=== PATIENT | male | born 1950 | race Caucasian/White ===

== ENCOUNTER 2018-02-12 14:18 | Observation (INO) | payer MEDICARE ==
[~2018-02-12] VITALS: Ht 182.9 cm; Wt 83.1 kg
--- OUTSIDE RECORDS SUMMARY | 2018-02-12 14:25 | XMS REPORT | Clinical Summary ---
Author Author User, GARRET Organization [facility] [place] Address Unknown Phone Unavailable Allergies, Adverse Reactions, Alerts Allergy Name Reaction Description Start Date Severity Status Provider No Known Allergies Rocco Porras Conditions or Problems Problem Name Problem Code Onset Date Status Entry Date Provider Comment Standard Description Annotate DIABETES MELLITUS, NONINSULIN DEPENDENT (NIDDM) 250.00 Active Rosey Alba Diabetes mellitus without mention of complication, type II or unspecified type, not stated as uncontrolled HYPERTENSION 401.1 Active Rosey Alba Benign essential hypertension HYPERCHOLESTEROLEMIA 272.0 Active Rosey Alba Pure hypercholesterolemia POLYCYTHEMIA 289.0 Active Rosey Alba Polycythemia, secondary GERD 530.81 Active Rosey Alba Esophageal reflux HYPOGLYCEMIA 251.2 Active Rosey Alba Hypoglycemia, unspecified ANEMIA NOS 285.9 Active Rosey Alba Anemia, unspecified BENIGN PROSTATIC HYPERTROPHY 600.0 Active Rosey Alba Hypertrophy (benign) of prostate MICROALBUMINURIA 791.0 Active Rosey Alba Proteinuria HEALTH SCREENING V70.0 Resolved Rosey Alba Routine general medical examination at a health care facility RENAL INSUFFICIENCY 593.9 Active Rosey Alba Unspecified disorder of kidney and ureter HEALTH SCREENING V70.0 Active Rosey Alba Routine general medical examination at a health care facility Medication List Medication Instructions Start Date Stop Date Generic Name NDC Status Provider Patient Instruction ASPIRIN 81 MG TAB 1 PO twice per week ASPIRIN 54417645126 No Longer Active Rosey Alba GLIPIZIDE 5 MG TABS 1/2 po BID GLIPIZIDE 98510280027 Active Rosey Alba PRILOSEC 20 MG CPDR 1 po daily OMEPRAZOLE 52006302511 No Longer Active Rosey Alba PLENDIL 5 MG TAB CR 1 PO daily FELODIPINE No Longer Active Rosey Alba ZETIA 10 MG TABS Take 1 PO daily EZETIMIBE 13671276037 No Longer Active Rosey Alba LISINOPRIL-HYDROCHLOROTHIAZIDE 20-25 MG TABS 1 PO Daily LISINOPRIL-HYDROCHLOROTHIAZIDE 24587907849 Active Rosey Alba ZOCOR 40 MG TABS 1 PO Daily SIMVASTATIN 42527700337 Active Rosey Alba METFORMIN HCL 1000 MG TABS 1 po BID METFORMIN HCL 75708974956 Active Rosey Alba Vital Signs Date Name Value Unit Range Description blood pressure, diastolic - 8462-4 78 mm[Hg] BP chow blood pressure, systolic - 8480-6 142 mm[Hg] BP sys pulse rate E&M - 8867-4 70 /min Heart rate respiratory rate E&M - 9279-1 14 /min Resp rate temperature E&M 98.9 [degF] Body temperature weight E&M - 3141-9 195 [lb_av] Weight Measured blood pressure, diastolic - 8462-4 75 mm[Hg] BP chow blood pressure, systolic - 8480-6 145 mm[Hg] BP sys pulse rate E&M - 8867-4 60 /min Heart rate respiratory rate E&M - 9279-1 14 /min Resp rate weight E&M - 3141-9 190 [lb_av] Weight Measured Diagnostic Results Date Name Value Unit Range Description Clinical Lists Update: CMP, CBC, Lipid, HbA1c, Micro, Ferritin - Chemistry calcium, serum 8.9 mg/dL creatinine, serum 1.58 mg/dL ferritin, serum 297.4 ng/mL alanine aminotransferase (SGPT), serum 51 U/L HDL cholesterol, serum 60 mg/dL lipoprotein, beta, serum, point, quantitative, calculated 93 mg/ dL hemoglobin A1C, blood, as % of total hemoglobin 7.1 % bilirubin, serum, total 0.5 mg/dL Estimated Glomerular Filtration Rate (calc) 45 mL/min/1.73m2 albumin, serum 4.0 g/dL triglyceride, serum, fasting 77 mg/dL alkaline phosphatase, serum 87 U/L potassium, serum 5.7 mmol/L urea nitrogen, blood 33 mg/dL glucose, plasma fasting 148 mg/dL protein, total, serum 7.3 g/dL chloride, serum 105 mmol/L sodium, serum 139 mmol/L cholesterol, serum 168 mg/dL aspartate aminotransferase (SGOT), serum 29 U/L carbon dioxide, venous blood 25 mmol/L Clinical Lists Update: CMP, CBC, Lipid, HbA1c, Micro, Ferritin - Hematology red blood cell distribution width 12.1 % mean corpuscular volume, RBC 95.8 fL leukocyte count, blood 6.2 10*3/mm3 erythrocyte (RBC) count 4.09 10*6/mm3 platelet count 206 10*3/mm3 hemoglobin, blood 13.3 g/dL hematocrit, blood 39.2 % Clinical Lists Update: CMP, CBC, Lipid, HbA1c, Micro, Ferritin - Urinalysis microalbumin, urine, semiquantitative 7.1 mg/dL Clinical Lists Update: CMP,FLP,TSH,HgA1c - Chemistry albumin, serum 3.7 g/dL alkaline phosphatase, serum 121 U/L urea nitrogen, blood 13 mg/dL calcium, serum 9.2 mg/dL chloride, serum 102 mmol/L cholesterol, serum 217 mg/dL carbon dioxide, venous blood 25 mmol/L creatinine, serum 1.05 mg/dL HDL cholesterol, serum 53 mg/dL hemoglobin A1C, blood, as % of total hemoglobin 7.0 % thyroid stimulating hormone, serum 1.29 u[iU]/mL LDL cholesterol, serum 135 mg/dL potassium, serum 4.9 mmol/L protein, total, serum 7.6 g/dL aspartate aminotransferase (SGOT), serum 23 U/L alanine aminotransferase (SGPT), serum 48 U/L bilirubin, serum, total 0.4 mg/dL triglyceride, serum, fasting 147 mg/dL sodium, serum 137 mmol/L anion gap, serum 10 glucose, plasma fasting 241 mg/dL Estimated Glomerular Filtration Rate (calc) >60 mL/min/1.73m2 Encounters Code Encounter Date Provider Facility CPT-25988 Ofc Vst, Est Level III 16:38:31 CDT [facility]y [facility] CPT-61333 Ofc Vst, Est Level III 15:48:56 MEDICAL INSTRUMENT CABLE FABRICATOR Rosey Alba DO, FACP CPT-01895 Ofc Vst, Est Level IV 11:16:22 CDT oRsey Alba DO, FACP CPT-02511 Ofc Vst, Est Level IV 10:50:20 MEDICAL INSTRUMENT CABLE FABRICATOR Rosey Lawrence Alba, DO, FACP CPT-13971 Ofc Vst, Est Level IV 09:58:34 MEDICAL INSTRUMENT CABLE FABRICATOR Rosey Lawrence Alba, DO, FACP CPT-80842 Ofc Vst, Est Level IV 13:54:47 CDT Rosey Lawrence Anjali, DO, FACP CPT-47856 Ofc Vst, Est Level IV 09:24:15 MEDICAL INSTRUMENT CABLE FABRICATOR Roseynirali Lawrence Alba, DO, FACP CPT-06730 Ofc Vst, Est Level IV 09:33:13 CDT Rsoey Hillary Lawrence Anjali, DO, FACP CPT-10384 Ofc Vst, Est Level IV 09:51:31 CDT Roseynirali Lawrence Anjali, DO, FACP CPT-64449 Ofc Vst, Est Level III 11:29:48 MEDICAL INSTRUMENT CABLE FABRICATOR Rosey Lawrence Alba, DO, FACP CPT-35626 Ofc Vst, Est Level IV 09:43:22 CDT Rosey Lawrence Anjali, DO, FACP CPT-68796 Ofc Vst, Est Level IV 10:02:16 MEDICAL INSTRUMENT CABLE FABRICATOR Rosey Lawrence Anjali, DO, FACP CPT-01765 Ofc Vst, Est Level IV 10:21:46 CDT Roseynirali Lawrence Anjali, DO, FACP CPT-77155 Ofc Vst, Est Level IV 09:22:13 CDT Rosey Alba [facility] CPT-85505 Ofc Vst, Est Level IV 12:12:44 MEDICAL INSTRUMENT CABLE FABRICATOR Rosey Alba [facility] [place] [facility] CPT-05982 Ofc Vst, New Level IV 11:01:28 MEDICAL INSTRUMENT CABLE FABRICATOR Rosey Alba [facility] Procedures Code Procedure Name Date Entry Date Standard Description CPT-68806 Preventive, Est, (40-64) 16:29:15 MEDICAL INSTRUMENT CABLE FABRICATOR [facility]-47670 Preventive, Cheli, (40-64) 16:17:02 MEDICAL INSTRUMENT CABLE FABRICATOR
--- OUTSIDE RECORDS SUMMARY | 2018-02-12 14:25 | XMS REPORT | Clinical Summary ---
Author Author User, GARRET Organization [facility] [place] Address Unknown Phone Unavailable Allergies, Adverse Reactions, [...] TAB 1 PO twice per week ASPIRIN 35123528871 No Longer Active Rosey Alba GLIPIZIDE 5 MG TABS 1/2 po BID GLIPIZIDE 97064000584 Active Rosey Alba PRILOSEC 20 MG CPDR 1 po daily OMEPRAZOLE 73960075741 No Longer Active Rosey Alba PLENDIL 5 MG TAB CR 1 PO daily FELODIPINE No Longer Active Rosey Alba ZETIA 10 MG TABS Take 1 PO daily EZETIMIBE 54201649615 No Longer Active Rosey Alba LISINOPRIL-HYDROCHLOROTHIAZIDE 20-25 MG TABS 1 PO Daily LISINOPRIL-HYDROCHLOROTHIAZIDE 55613920932 Active Rosey Alba ZOCOR 40 MG TABS 1 PO Daily SIMVASTATIN 28913090664 Active Rosey Alba METFORMIN HCL 1000 MG TABS 1 po BID METFORMIN HCL 47182957600 Active Rosey Alba Vital Signs Date Name Value Unit Range Description blood pressure, diastolic - 8462-4 78 mm[Hg] BP chow blood pressure, systolic - 8480-6 142 mm[Hg] BP sys pulse rate E&M - 8867-4 70 /min Heart rate respiratory rate E&M - 9279-1 14 /min Resp rate temperature E&M 98.9 [degF] Body temperature weight E&M - 3141-9 195 [lb_av] Weight Measured Diagnostic Results Date Name Value Unit Range Description Clinical Lists Update: CBC,CMP,FLP,HGA1C,MICROALBUMIN - Chemistry Estimated Glomerular Filtration Rate (calc) >60 mL/min/1.73m2 albumin, serum 3.8 g/dL sodium, serum 138 mmol/L triglyceride, serum, fasting 221 mg/dL bilirubin, serum, total 0.4 mg/dL alanine aminotransferase (SGPT), serum 93 U/L aspartate aminotransferase (SGOT), serum 38 U/L protein, total, serum 6.9 g/dL potassium, serum 4.3 mmol/L LDL cholesterol, serum 129 mg/dL hemoglobin A1C, blood, as % of total hemoglobin 8.3 % HDL cholesterol, serum 62 mg/dL creatinine, serum 1.09 mg/dL carbon dioxide, venous blood 24 mmol/L cholesterol, serum 235 mg/dL chloride, serum 103 mmol/L calcium, serum 8.9 mg/dL urea nitrogen, blood 18 mg/dL alkaline phosphatase, serum 73 U/L glucose, plasma fasting 230 mg/dL Clinical Lists Update: CBC,CMP,FLP,HGA1C,MICROALBUMIN - Hematology hematocrit, blood 46.6 % hemoglobin, blood 15.9 g/dL platelet count 159 10*3/mm3 erythrocyte (RBC) count 4.83 10*6/mm3 leukocyte count, blood 4.4 10*3/mm3 mean corpuscular volume, RBC 96.4 fL red blood cell distribution width 12.7 % Clinical Lists Update: CBC,CMP,FLP,HGA1C,MICROALBUMIN - Urinalysis microalbumin, urine, semiquantitative 14.2 mg/dL Clinical Lists Update: CMP,FLP,TSH,HgA1c - Chemistry Estimated Glomerular Filtration Rate (calc) >60 mL/min/1.73m2 potassium, serum 4.9 mmol/L LDL cholesterol, serum 135 mg/dL thyroid stimulating hormone, serum 1.29 u[iU]/mL hemoglobin A1C, blood, as % of total hemoglobin 7.0 % HDL cholesterol, serum 53 mg/dL creatinine, serum 1.05 mg/dL carbon dioxide, venous blood 25 mmol/L cholesterol, serum 217 mg/dL chloride, serum 102 mmol/L calcium, serum 9.2 mg/dL urea nitrogen, blood 13 mg/dL alkaline phosphatase, serum 121 U/L albumin, serum 3.7 g/dL alanine aminotransferase (SGPT), serum 48 U/L bilirubin, serum, total 0.4 mg/dL triglyceride, serum, fasting 147 mg/dL sodium, serum 137 mmol/L anion gap, serum 10 glucose, plasma fasting 241 mg/dL aspartate aminotransferase (SGOT), serum 23 U/L protein, total, serum 7.6 g/dL Encounters Code Encounter Date Provider Facility CPT-75432 Ofc Vst, Est Level III 16:38:31 CDT Rosey Alba [facility] CPT-47852 Ofc Vst, Est Level III 15:48:56 DIRECTOR OF SUSTAINABILITY Rosey Alba DO, FACP CPT-41942 Ofc Vst, Est Level IV 11:16:22 CDT Rosey Alba DO, FACP CPT-12479 Ofc Vst, Est Level IV 10:50:20 DIRECTOR OF SUSTAINABILITY Rosey Alba DO, FACP CPT-38911 Ofc Vst, Est Level IV 09:58:34 DIRECTOR OF SUSTAINABILITY Rosey Alba DO, FACP CPT-89809 Ofc Vst, Est Level IV 13:54:47 CDT Rosey Alba DO, FACP CPT-92246 Ofc Vst, Est Level IV 09:24:15 DIRECTOR OF SUSTAINABILITY Rosey Hillary Alba Rosey S Alba, DO, FACP CPT-35403 Ofc Vst, Est Level IV 09:33:13 CDT Rosey Hillary Lawrence Anjali, DO, FACP CPT-87305 Ofc Vst, Est Level IV 09:51:31 CDT Rosey Hillary Lawrence Anjali, DO, FACP CPT-83396 Ofc Vst, Est Level III 11:29:48 DIRECTOR OF SUSTAINABILITY Rosey Lawrence Anjali, DO, FACP CPT-14795 Ofc Vst, Est Level IV 09:43:22 CDT Rosey Lesliener Roseynirali Alba, DO, FACP CPT-94924 Ofc Vst, Est Level IV 10:02:16 DIRECTOR OF SUSTAINABILITY Rosey Lesliener Rosey Howard Anjali, DO, FACP CPT-52866 Ofc Vst, Est Level IV 10:21:46 CDT Rosey Hillary Lawrence Anjali, DO, FACP CPT-85788 Ofc Vst, Est Level IV 09:22:13 CDT Rosey Alba [facility] [place] CPT-62792 Ofc Vst, Est Level IV 12:12:44 DIRECTOR OF SUSTAINABILITY Rosey Alba [facility] [place] CPT-72793 Ofc Vst, New Level IV 11:01:28 DIRECTOR OF SUSTAINABILITY Rosey Alba [facility] [place] Procedures Code Procedure Name Date Entry Date Standard Description CPT-33557 Preventive, Est, (40-64) 16:29:15 DIRECTOR OF SUSTAINABILITY CPT-27149 Preventive, Est, (40-64) 16:17:02 DIRECTOR OF SUSTAINABILITY
--- OUTSIDE RECORDS SUMMARY | 2018-02-12 14:25 | XMS REPORT | Clinical Summary ---
Author Author User, GARRET Organization [facility] [place] Address Unknown Phone Unavailable Allergies, Adverse Reactions, [...] Anemia, unspecified BENIGN PROSTATIC HYPERTROPHY 600.0 Active Rosye Alba Hypertrophy (benign) of prostate MICROALBUMINURIA 791.0 [...] TAB 1 PO twice per week ASPIRIN 68142900331 No Longer Active Rosey Alba GLIPIZIDE 5 MG TABS 1/2 po BID GLIPIZIDE 41818842215 Active Rosey Alba PRILOSEC 20 MG CPDR 1 po daily OMEPRAZOLE 79781279212 No Longer Active Rosey Alba PLENDIL 5 MG TAB CR 1 PO daily FELODIPINE No Longer Active Rosey Alba ZETIA 10 MG TABS Take 1 PO daily EZETIMIBE 81265778809 No Longer Active Rosey Alba LISINOPRIL-HYDROCHLOROTHIAZIDE 20-25 MG TABS 1 PO Daily LISINOPRIL-HYDROCHLOROTHIAZIDE 56968450293 Active Rosey Alba ZOCOR 40 MG TABS 1 PO Daily SIMVASTATIN 38899630311 Active Rosey Alba METFORMIN HCL 1000 MG TABS 1 po BID METFORMIN HCL 44689068261 Active Rosey Alba Vital Signs Date Name [...] mL/min/1.73m2 Encounters Code Encounter Date Provider Facility CPT-53773 Ofc Vst, Est Level III 16:38:31 CDT Rosey [facility] CPT-81576 Ofc Vst, Est Level III 15:48:56 SUPERVISOR KNITTING Rosey Alba DO, FACP CPT-28599 Ofc Vst, Est Level IV 11:16:22 CDT Rosey Alba DO, FACP CPT-68578 Ofc Vst, Est Level IV 10:50:20 SUPERVISOR KNITTING Rosey Lawrence Alba, DO, FACP CPT-62162 Ofc Vst, Est Level IV 09:58:34 SUPERVISOR KNITTING Rosey Lawrence Alba, DO, FACP CPT-15662 Ofc Vst, Est Level IV 13:54:47 CDT Rosey Lawrence Anjali, DO, FACP CPT-28722 Ofc Vst, Est Level IV 09:24:15 SUPERVISOR KNITTING Roseynirali Lawrence Alba, DO, FACP CPT-97031 Ofc Vst, Est Level IV 09:33:13 CDT Rosey Hillary Lawrence Anjali, DO, FACP CPT-53420 Ofc Vst, Est Level IV 09:51:31 CDT Roseynirali Lawrence Anjali, DO, FACP CPT-17602 Ofc Vst, Est Level III 11:29:48 SUPERVISOR KNITTING Rosey Lawrence Alba, DO, FACP CPT-87170 Ofc Vst, Est Level IV 09:43:22 CDT Rosey Lawrence Anjali, DO, FACP CPT-09715 Ofc Vst, Est Level IV 10:02:16 SUPERVISOR KNITTING Rosey Lawrence Anjali, DO, FACP CPT-19703 Ofc Vst, Est Level IV 10:21:46 CDT Roseynirali Lawrence Anjali, DO, FACP CPT-83288 Ofc Vst, Est Level IV 09:22:13 CDT Rosey Alba [facility] CPT-73792 Ofc Vst, Est Level IV 12:12:44 SUPERVISOR KNITTING Rosey Alba [facility] CPT-50626 Ofc Vst, New Level IV 11:01:28 SUPERVISOR KNITTING Rosey Alba [facility] Procedures Code Procedure Name Date Entry Date Standard Description CPT-55505 Preventive, Est, (40-64) 16:29:15 SUPERVISOR KNITTING [facility]-65316 Preventive, Cheli, (40-64) 16:17:02 SUPERVISOR KNITTING
--- OUTSIDE RECORDS SUMMARY | 2018-02-12 14:26 | XMS REPORT | Clinical Summary ---
Author Author User, GARRET Organization [facility] Address Unknown Phone Unavailable Allergies, Adverse Reactions, [...] of kidney and ureter HEALTH SCREENING V70.0 Resolved Rosey Alba Routine general medical examination at a health care facility Medication List Medication Instructions Start Date Stop Date Generic Name NDC Status Provider Patient Instruction ASPIRIN 81 MG TAB 1 PO twice per week ASPIRIN 95029392667 No Longer Active Rosey Alba GLIPIZIDE 5 MG TABS 1/2 po BID GLIPIZIDE 99151628701 Active Rosey Alba PRILOSEC 20 MG CPDR 1 po daily OMEPRAZOLE 62755075708 No Longer Active Rosey Alba PLENDIL 5 MG TAB CR 1 PO daily FELODIPINE No Longer Active Rosey Alba ZETIA 10 MG TABS Take 1 PO daily EZETIMIBE 55079489413 No Longer Active Rosey Alba LISINOPRIL-HYDROCHLOROTHIAZIDE 20-25 MG TABS 1 PO Daily LISINOPRIL-HYDROCHLOROTHIAZIDE 85724439610 Active Rosey Alba ZOCOR 40 MG TABS 1 PO Daily SIMVASTATIN 34313109341 Active Rosey Alba METFORMIN HCL 1000 MG TABS 1 po BID METFORMIN HCL 92830378688 Active Rosey Alba Vital Signs Date Name Value Unit Range Description blood pressure, diastolic - 8462-4 96 mm[Hg] BP chow blood pressure, systolic - 8480-6 179 mm[Hg] BP sys pulse rate E&M - 8867-4 80 /min Heart rate respiratory rate E&M - 9279-1 14 /min Resp rate temperature E&M 98.6 [degF] Body temperature weight E&M - 3141-9 194 [lb_av] Weight Measured blood pressure, diastolic - 8462-4 78 mm[Hg] [...] mg/dL Clinical Lists Update: CMP,FLP,TSH,HgA1c - Chemistry protein, total, serum 7.6 g/dL potassium, serum 4.9 mmol/L LDL cholesterol, serum [...] g/dL alanine aminotransferase (SGPT), serum 48 U/L aspartate aminotransferase (SGOT), serum 23 U/L bilirubin, serum, total 0.4 mg/dL triglyceride, serum, fasting 147 mg/dL sodium, serum 137 mmol/L anion gap, serum 10 glucose, plasma fasting 241 mg/dL Estimated Glomerular Filtration Rate (calc) >60 mL/min/1.73m2 Clinical Lists Update: FERRITIN - Chemistry ferritin, serum 171.5 ng/mL Encounters Code Encounter Date Provider Facility CPT-79473 Ofc Vst, Est Level IV 17:28:35 CDT Rosey Alba DO, FACP CPT-73767 Ofc Vst, Est Level III 16:38:31 CDT Rosey Alba [facility] CPT-55409 Ofc Vst, Est Level III 15:48:56 PILE TRIMMER Rsoey Alba DO [facility] CPT-22304 Ofc Vst, Est Level IV 11:16:22 CDT Rosey Hillary Lawrence Anjali, DO, FACP CPT-77948 Ofc Vst, Est Level IV 10:50:20 PILE TRIMMER Rosey Hillary Lawrence Alba, DO, FACP CPT-74695 Ofc Vst, Est Level IV 09:58:34 PILE TRIMMER Rosey Hillary Lawrence Alba, DO, FACP CPT-90957 Ofc Vst, Est Level IV 13:54:47 CDT Rosey Hillary Lawrence Anjali, DO, FACP CPT-60538 Ofc Vst, Est Level IV 09:24:15 PILE TRIMMER Rosey Hillary Lawrence Anjali, DO, FACP CPT-10428 Ofc Vst, Est Level IV 09:33:13 CDT Rosey Hillary Lawrence Anjali, DO, FACP CPT-53030 Ofc Vst, Est Level IV 09:51:31 CDT Rosey Hillary Lawrence Anjali, DO, FACP CPT-22773 Ofc Vst, Est Level III 11:29:48 PILE TRIMMER Rosey Hillary Lawrence Anjali, DO, FACP CPT-11143 Ofc Vst, Est Level IV 09:43:22 CDT Rosey Hillary Alba Rosey Lawrence Anjali, DO, FACP CPT-56615 Ofc Vst, Est Level IV 10:02:16 PILE TRIMMER Rosey Hillary Lesliener oRsey Lawrence Anjali, DO, FACP CPT-95137 Ofc Vst, Est Level IV 10:21:46 CDT Rosey Hillary Anjali Rosey S Anjali, DO, FACP CPT-64525 Ofc Vst, Est Level IV 09:22:13 CDT Rosey Alba [facility] CPT-16131 Ofc Vst, Est Level IV 12:12:44 PILE TRIMMER Rosey Alba [facility] CPT-35404 Ofc Vst, New Level IV 11:01:28 PILE TRIMMER Rosey Alba [facility] Procedures Code Procedure Name Date Entry Date Standard Description CPT-26935 Preventive, Est, (40-64) 16:29:15 PILE TRIMMER CPT-22931 Preventive, Est, (40-64) 16:17:02 PILE TRIMMER
--- OUTSIDE RECORDS SUMMARY | 2018-02-12 14:26 | XMS REPORT | Clinical Summary ---
Author Author User, GARRET Organization [facility] Address Unknown Phone Unavailable Allergies, Adverse Reactions, [...] TAB 1 PO twice per week ASPIRIN 40099117901 No Longer Active Rosey Alba GLIPIZIDE 5 MG TABS 1/2 po BID GLIPIZIDE 50477286758 Active Rosey Alba PRILOSEC 20 MG CPDR 1 po daily OMEPRAZOLE 24319451306 No Longer Active Rosey Alba PLENDIL 5 MG TAB CR 1 PO daily FELODIPINE No Longer Active Rosey Alba ZETIA 10 MG TABS Take 1 PO daily EZETIMIBE 45187292773 No Longer Active Rosey Alba LISINOPRIL-HYDROCHLOROTHIAZIDE 20-25 MG TABS 1 PO Daily LISINOPRIL-HYDROCHLOROTHIAZIDE 99635949748 Active Rosey Alba ZOCOR 40 MG TABS 1 PO Daily SIMVASTATIN 27322434758 Active Rosey Alba METFORMIN HCL 1000 MG TABS 1 po BID METFORMIN HCL 87343689171 Active Rosey Alba Vital Signs Date Name [...] ng/mL Encounters Code Encounter Date Provider Facility CPT-36664 Ofc Vst, Est Level III 16:38:31 CDT Rosey Alba [facility] CPT-52056 Ofc Vst, Est Level III 15:48:56 SLOT OPERATIONS MANAGER Rosey Alba DO, FACP CPT-75522 Ofc Vst, Est Level IV 11:16:22 CDT Rosey Alba DO, FACP CPT-26577 Ofc Vst, Est Level IV 10:50:20 SLOT OPERATIONS MANAGER Rosey Alba DO, FACP CPT-12888 Ofc Vst, Est Level IV 09:58:34 SLOT OPERATIONS MANAGER Rosey Alba DO, FACP CPT-89534 Ofc Vst, Est Level IV 13:54:47 CDT Rosey Alba DO, FACP CPT-68279 Ofc Vst, Est Level IV 09:24:15 SLOT OPERATIONS MANAGER Rosey Lawrence Alba, DO, FACP CPT-63833 Ofc Vst, Est Level IV 09:33:13 CDT Rosey Hillary Lawrence Alba, DO, FACP CPT-79048 Ofc Vst, Est Level IV 09:51:31 CDT Rosey Hillary Lawrence Alba, DO, FACP CPT-24353 Ofc Vst, Est Level III 11:29:48 SLOT OPERATIONS MANAGER Rosey Hillary Lawrence Alba, DO, FACP CPT-90038 Ofc Vst, Est Level IV 09:43:22 CDT Rosey Hillary Lawrence Alba, DO, FACP CPT-05255 Ofc Vst, Est Level IV 10:02:16 SLOT OPERATIONS MANAGER Rosey Lawrence Alba, DO, FACP CPT-37345 Ofc Vst, Est Level IV 10:21:46 CDT Rosey Hillary Lawrence Alba, DO, FACP CPT-18099 Ofc Vst, Est Level IV 09:22:13 CDT Rosey lAba [facility] [place] CPT-62389 Ofc Vst, Est Level IV 12:12:44 SLOT OPERATIONS MANAGER Rosey Alba [facility] CPT-44732 Ofc Vst, New Level IV 11:01:28 SLOT OPERATIONS MANAGER Rosey Alba [facility] [place] Procedures Code Procedure Name Date Entry Date Standard Description CPT-79397 Preventive, Est, (40-64) 16:29:15 SLOT OPERATIONS MANAGER CPT-70161 Preventive, Est, (40-64) 16:17:02 SLOT OPERATIONS MANAGER
[2018-02-12 15:00] VITALS: BP 104/70
[2018-02-12] MEDS ORDERED: HYDR-3812 PO (15:48)
[2018-02-12] MEDS ORDERED: METF500T8 PO (15:48)
[2018-02-12] MEDS ORDERED: GLIP-197 PO (15:48)
[2018-02-12] MEDS ORDERED: AMOX1TAB12 PO (15:48)
[2018-02-12] MEDS ORDERED: LISI1TAB10 PO (15:48)
[2018-02-12 15:59] LABS: BASOPHILS % (AUTO) 0 % (0-10); EOSINOPHILS # (AUTO) 0.1 10^3/uL (0.0-0.3); EOSINOPHILS % (AUTO) 1 % (0-10); HEMATOCRIT 38 % (40-54); LYMPHOCYTES # (AUTO) 1.3 X 10^3 (1.0-4.0); LYMPHOCYTES % (AUTO) 10 % (12-44); MEAN CORPUSCULAR HEMOGLOBIN 33 PG (25-34); MEAN CORPUSCULAR HGB CONC 37 G/DL (32-36); MEAN CORPUSCULAR VOLUME 90 FL (80-99); MONOCYTES # (AUTO) 1.2 X 10^3 (0.0-1.0); MONOCYTES % (AUTO) 9 % (0-12); NEUTROPHILS # (AUTO) 10.4 X 10^3 (1.8-7.8); NEUTROPHILS % (AUTO) 80 % (42-75); PLATELET COUNT 201 10^3/uL (130-400); RED BLOOD COUNT 4.26 10^6/uL (4.35-5.85); RED CELL DISTRIBUTION WIDTH 12.1 % (10.0-14.5)
[2018-02-12 16:21] LABS: ALANINE AMINOTRANSFERASE 10 U/L (0-55); ALBUMIN 4.2 GM/DL (3.2-4.5); ALKALINE PHOSPHATASE 56 U/L (40-136); BILIRUBIN,TOTAL 0.6 MG/DL (0.1-1.0); BUN/CREATININE RATIO 27; CALCIUM 10.2 MG/DL (8.5-10.1); CARBON DIOXIDE 24 MMOL/L (21-32); CHLORIDE 95 MMOL/L (98-107); CREATININE SERUM 2.12 MG/DL (0.60-1.30); GFR ESTIMATED 32; GLUCOSE 279 MG/DL (70-105); MAGNESIUM 2.3 MG/DL (1.8-2.4); POTASSIUM 4.4 MMOL/L (3.6-5.0); SODIUM 131 MMOL/L (135-145)
[2018-02-12 16:28] LABS: MYOGLOBIN SERUM 61.7 NG/ML (10.0-92.0)
[2018-02-12 16:30] LABS: INR 0.9 (0.8-1.4); PROTHROMBIN TIME PATIENT 12.5 SEC (12.2-14.7)
--- NOTE | 2018-02-12 16:40 | Diagnostic Imaging Report ---
INDICATION: Chest pain. Frontal chest obtained at 04:27 p.m. Heart and mediastinal silhouette are normal in appearance. The lungs are clear. There is no pneumothorax or pleural fluid. IMPRESSION: Negative chest. Dictated by: Dictated on workstation # [id number]
--- NOTE | 2018-02-12 16:52 | Consultation-Cardiology ---
HPI-Cardiology Cardiology Consultation: Date of Consultation 02/12/18 Date of Admission Attending Physician Rosey Alba DO Admitting Physician Rosey Alba DO Consulting Physician Mallory GARCES MD HPI: Time Seen by Provider: 17:28 Chief Complaint: Fatigue This is a 67-year-old gentleman who has history of hypertension and diabetes. He denies any past cardiac history. He denies active smoking. He recently had a nosebleed and was found to be significantly hypertensive. He restarted his high blood pressure medications and recently has been on the lower side of blood pressure. He saw Dr. Alba today and was directly admitted. The patient denies any chest pain, shortness of breath, syncope, near-syncope, palpitations. I asked him more than once but he denies any cardiac symptoms. Review of Systems-Cardiology Review of Systems Constitutional: As described under HPI; No As described under HPI, No no symptoms reported, No chills, No fever, No lightheadedness; tiredness Eyes: No As described under HPI, No no symptoms reported, No blindness, No blurred vision, No contact lenses, No drainage, No decreased acuity, No foreign body sensation, No pain, No vision change Ears/Nose/Throat: No As described under HPI, No no symptoms reported, No chronic hearing loss, No ear discharge, No ear pain, No nasal drainage, No ulcerations Respiratory: No no symptoms reported; As described under HPI; No As described under HPI, No cough, No orthopnea, No shortness of breath, No SOB with excertion Cardiovascular: No no symptoms reported; As described under HPI; No As described under HPI, No chest pain, No edema, No irregular heart rate, No lightheadedness, No palpitations Gastrointestinal: No no symptoms reported, No As described under HPI, No abdomen distended, No abdominal pain, No blood streaked bowels, No constipation , No diarrhea, No nausea, No vomiting, No stool coloration changes Genitourinary: No As described under HPI, No burning, No dysuria, No discharge , No frequency, No flank pain, No hematuria, No urgency Musculoskeletal: No no symptoms reported, No As describe under HPI, No back pain, No gout, No joint pain, No joint swelling, No muscle pain, No muscle stiffness, No neck pain, No other Skin: No no symptoms reported, No As described under HPI, No change in color, No change in hair/nails, No dryness, No lesions, No lumps, No rash, No other, No skin related problems, No ulcerations, No rash on exposed areas, No ulcerations on exposed areas Psychiatric/Neurological: No anxiety, No depression, No seizure, No focal weakness, No syncope Hematologic: No bleeding abnormalities VVL-Gtdwgm-Tjcpmt Hx Past Medical History PMH As described under Assessment. Allergies and Home Medications Allergies Coded Allergies: No Known Drug Allergies (Unverified , 02/12/18) Home Medications Amoxicillin/Potassium Clav 1 Each Tablet, 1 TAB PO BID, (Reported) 7 DAY SUPPLY FILLED 02-09-18 Glipizide 10 Mg Tab.er.24, 10 MG PO DAILY, (Reported) Hydrocodone/Acetaminophen 1 Each Tablet, 1 TAB PO Q4H PRN for PAIN-MODERATE, ( Reported) Lisinopril/Hydrochlorothiazide 1 Each Tablet, 1 TAB PO DAILY, (Reported) Metformin HCl 500 Mg Tab.er.24h, 500 MG PO BID, (Reported) Patient Home Medication List Home Medication List Reviewed: Yes Physical Exam-Cardiology Physical Exam Vital Signs/I&O Capillary Refill : Constitutional: appears stated age; No apparent distress; well-developed, well- nourished HEENT: PERRL; No discharge; hearing is well preserved, oral hygience is good; No ulceration, No xanthelasmas are seen Neck: No carotid bruit; carotid pulses are 2 + bilaterally Respiratory: No accessory muscle use, No respiratory distress, No chest tender , No chest expansion is symmetric; chest is bilaterally symmetric; No lungs clear to percussion; lungs clear to auscultation; No crackles, No rhonchi, No rales, No stridor, No wheezing, No pleural rub, No other Cardiovascular: regular rate-rhythm; No irregularly irregular, No extra beats, No parasternal heave is noted, No JVD, No edema, No bradycardia, No tachycardia , No point of maximal impulse, No cardiac thrills are palpable; S1 and S2; No gallop/S3, No gallop/S4, No diastolic murmur, No systolic murmur, No friction rub, No click, No other Gastrointestinal: No tender, No soft, No round, No distended, No pulsatile mass , No organomegaly, No guarding, No rebound, No tenderness, No hernia, No mass, No audible bowel sounds, No abnormal bowel sounds, No abdominal bruits, No spleenomegaly, No other Rectal: deferred Extremities: No normal range of motion, No non-tender, No normal inspection, No pedal edema, No calf tenderness, No normal capillary refill, No pelvis stable , No calf tenderness, No inflammation, No pedal edema, No slow capillary refill , No swelling, No other, No abrasion, No clubbing, No cyanosis, No ecchymosis, No laceration, No no lower extremity edema bilateral, No significant edema, No tenderness, No wound Neurologic/Psychiatric: no motor/sensory deficits, alert, normal mood/affect, oriented x 3, power is 5/5 both on sides Skin: No rash, No ulcerations Data Review Labs Laboratory Tests 02/12/18 15:55: White Blood Count 13.0H, Red Blood Count 4.26L, Hemoglobin 14.0, Hematocrit 38L , Mean Corpuscular Volume 90, Mean Corpuscular Hemoglobin 33, Mean Corpuscular Hemoglobin Concent 37H, Red Cell Distribution Width 12.1, Platelet Count 201, Mean Platelet Volume 11.0H, Neutrophils (%) (Auto) 80H, Lymphocytes (%) (Auto) 10L, Monocytes (%) (Auto) 9, Eosinophils (%) (Auto) 1, Basophils (%) (Auto) 0, Neutrophils # (Auto) 10.4H, Lymphocytes # (Auto) 1.3, Monocytes # (Auto) 1.2H, Eosinophils # (Auto) 0.1, Basophils # (Auto) 0.0, Prothrombin Time 12.5, INR Comment 0.9, Activated Partial Thromboplast Time 27, Sodium Level 131L, Potassium Level 4.4, Chloride Level 95L, Carbon Dioxide Level 24, Anion Gap 12, Blood Urea Nitrogen 57H, Creatinine 2.12H, Estimat Glomerular Filtration Rate 32 , BUN/Creatinine Ratio 27, Glucose Level 279H, Calcium Level 10.2H, Magnesium Level 2.3, Total Bilirubin 0.6, Aspartate Amino Transf (AST/SGOT) 10, Alanine Aminotransferase (ALT/SGPT) 10, Alkaline Phosphatase 56, Myoglobin 61.7, Troponin I < 0.30, B-Type Natriuretic Peptide < 10.0, Total Protein 8.0, Albumin 4.2 ECG Impression ECG Initial ECG Rhythm: Normal Sinus Initial ECG Impression: Nonspecific Changes A/P-Cardiology Assessment/Admission Diagnosis Fatigue, hypertension, diabetes Plan Patient denies any cardiac symptoms. First troponin is negative. Request echocardiogram. Since the patient is asymptomatic nuclear stress test is not indicated. Hypertension: Blood pressure is borderline low. Will not recommend antihypertensive therapy at this point in time. Diabetes: Start metformin. Thank you for your consultation. Please call me if you have any questions. Praneeth Garces MD, FACP, FACC, FSCAI, FHRS, CCDS Interventional Cardiology Cardiac Electrophysiology Vascular Medicine and Endovascular Interventions Mallory GARCES MD February 12, 2018 4:52 pm
[2018-02-12] MEDS: NS IV 1000 ML 1,000 ML IV SCH ×2 (17:21→23:22)
[2018-02-12 18:00] VITALS: BP 112/68
[2018-02-12] MEDS: inSUlin ASPART (NovoLOG) 1 UNIT/0.01 ML (CHARGE PER UNIT) SC SCH ×2 (18:22→21:47)
[2018-02-12 20:21] VITALS: BP 107/59
[2018-02-13 01:42] VITALS: BP 123/68
[2018-02-13] MEDS: NS IV 1000 ML 1,000 ML IV SCH ×2 (03:30→09:55)
[2018-02-13 04:19] LABS: BASOPHILS % (AUTO) 0 % (0-10); EOSINOPHILS # (AUTO) 0.2 10^3/uL (0.0-0.3); EOSINOPHILS % (AUTO) 3 % (0-10); HEMATOCRIT 31 % (40-54); HEMOGLOBIN 11.3 G/DL (13.3-17.7); LYMPHOCYTES # (AUTO) 1.2 X 10^3 (1.0-4.0); LYMPHOCYTES % (AUTO) 13 % (12-44); MEAN CORPUSCULAR HEMOGLOBIN 33 PG (25-34); MEAN CORPUSCULAR HGB CONC 37 G/DL (32-36); MEAN CORPUSCULAR VOLUME 90 FL (80-99); MEAN PLATELET VOLUME 10.4 FL (7.4-10.4); MONOCYTES % (AUTO) 11 % (0-12); NEUTROPHILS # (AUTO) 6.3 X 10^3 (1.8-7.8); NEUTROPHILS % (AUTO) 73 % (42-75); PLATELET COUNT 193 10^3/uL (130-400); RED BLOOD COUNT 3.46 10^6/uL (4.35-5.85); RED CELL DISTRIBUTION WIDTH 12.1 % (10.0-14.5); WHITE BLOOD COUNT 8.6 10^3/uL (4.3-11.0)
[2018-02-13 04:22] VITALS: BP 123/72
[2018-02-13 04:33] LABS: CLARITY,URINE CLEAR; COLOR,URINE YELLOW; GLUCOSE, URINE (UA) 2+ (NEGATIVE); KETONES,URINE 1+ (NEGATIVE); LEUKOCYTE ESTERASE ,URINE 1+ (NEGATIVE); NITRITE,URINE NEGATIVE (NEGATIVE); PH,URINE 5 (5-9); PROTEIN,URINE 1+ (NEGATIVE); UROBILINOGEN,URINE 1 MG/DL (NORMAL)
[2018-02-13 04:44] LABS: BACTERIA,URINE TRACE /HPF; BILIRUBIN,URINE 1+ (NEGATIVE); WBC,URINE RARE /HPF
[2018-02-13 04:45] LABS: ALBUMIN 3.5 GM/DL (3.2-4.5); BILIRUBIN,TOTAL 0.5 MG/DL (0.1-1.0); CALCIUM 9.5 MG/DL (8.5-10.1); CREATININE SERUM 1.92 MG/DL (0.60-1.30); POTASSIUM 3.6 MMOL/L (3.6-5.0); TOTAL PROTEIN 6.1 GM/DL (6.4-8.2)
[2018-02-13] MEDS: inSUlin ASPART (NovoLOG) 1 UNIT/0.01 ML (CHARGE PER UNIT) SC SCH ×2 (05:19→11:41)
[2018-02-13 08:00] VITALS: BP 123/72
[2018-02-13] MEDS ORDERED: INSU100I14 SQ (10:26)
[2018-02-13] MEDS ORDERED: NEED-116 MC (10:26)
[2018-02-13] MEDS ORDERED: INSU100I29 SQ (10:26)
[2018-02-13] MEDS ORDERED: AMLO5TAB4 PO (10:26)
[2018-02-13] MEDS ORDERED: NON-FORMULARY MEDICATION 1 EA EA (Hydrocodone/Acetaminophen (Hydrocodone-Acetamin 5-325 mg PO PRN (10:30)
--- NOTE | 2018-02-13 10:31 | Short Stay Summary-Hospitalist ---
History of Present Illness HPI/Chief Complaint CC: Near syncope HPI: This is a 67-year-old white male that is been my clinic patient for the past 13 years with a history of diabetes and hypertension hyperlipidemia and severe noncompliance who presented to my office after a severe nosebleed on Friday a [employer] was placed in the [facility] [place] where he resides and then he had follow-up with Dr. Bauer yesterday prior to my appointment due to near syncopal issues. He had of severe high blood pressure reading in the ER [place] and I had just seen him in the clinic a few weeks ago when he reluctantly agreed to increase his glycoside and metformin. His hemoglobin A1c was at that time 11 now it is 13.4. At a long conversation with the clinic with him and for the first time in 13 years of taking care of him as my clinic patient I met his and daughter who were extremely worried about him and after lengthy discussion his family they talked him into being admitted to the hospital I placed him on cardiac stepdown status initiated workup spoke with cardiology. Echocardiogram was reviewed cardiology evaluated him negative troponins were noted and he felt like there was no evidence of acute coronary syndrome. His creatinine was 2.1 on admission likely due to dehydration but IV fluids of normal saline at 125 mL/hour was initiated overnight and creatinine only improved to 1.9 so diabetic nephropathy is likely and he will need nephrology follow-up that will be arranged when I see him on Friday in the clinic. Diabetic education ensued and insulin education was initiated and he will go home on insulin and discontinuation of lisinopril hydrochlorothiazide metformin and glypizide. Source: patient, family Date Seen 02/13/18 Time Seen by Provider: 09:30 Attending Physician Rosey Alba DO PCP Rosey Alba DO Referring Physician Date of Admission February 12, 2018 at 14:21 Home Medications & Allergies Home Medications Reviewed patient Home Medication Reconciliation performed by pharmacy medication reconciliations refinish technician and/or nursing. Patients Allergies have been reviewed. 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) Alcohol Use: Occasionally Uses Alcohol Beverage of Choice: Other Recreational Drug Use: No Smoking Status: Never a Smoker Physical Abuse Screen: No Sexual Abuse: No Recent Foreign Travel: No Contact w/other who traveled: No Recent Hopitalizations: No Recent Infectious Disease Expo: No Seasonal Allergies Seasonal Allergies: No Past Medical History Cardiac: High Cholesterol, Hypertension Musculoskeletal: Arthritis Endocrine: Diabetes, Non-Insulin dep History of Blood Disorders: No Family History Diabetes mellitus 19 MOTHER G8 SISTER Parkinson's disease 19 FATHER Diabetes Review of Systems Constitutional: see HPI, weakness EENTM: no symptoms reported Respiratory: no symptoms reported Cardiovascular: no symptoms reported Gastrointestinal: no symptoms reported Genitourinary: decreased output Musculoskeletal: back pain Skin: no symptoms reported Psychiatric/Neurological: Depressed All Other Systems Reviewed Negative Unless Noted: Yes Physical Exam Physical Exam Vital Signs Vital Signs - First Documented 02/12/18 15:00 Temp 98.3 Pulse 98 Resp 14 B/P (MAP) 104/70 (81) Pulse Ox 96 O2 Delivery Room Air Capillary Refill : General Appearance: No Apparent Distress, WD/WN, Chronically ill Eyes: Bilateral Eye Normal Inspection, Bilateral Eye PERRL HEENT: PERRL/EOMI, Normal ENT Inspection, Pharynx Normal Neck: Full Range of Motion, Normal Inspection, Non Tender, Supple, Carotid Bruit Respiratory: Chest Non Tender, Lungs Clear, Normal Breath Sounds, No Accessory Muscle Use, No Respiratory Distress Cardiovascular: Regular Rate, Rhythm, No Edema, No Gallop, No JVD, No Murmur, Normal Peripheral Pulses Gastrointestinal: Normal Bowel Sounds, No Organomegaly, No Pulsatile Mass, Non Tender, Soft Back: Normal Inspection, No CVA Tenderness, No Vertebral Tenderness Extremity: Normal Capillary Refill, Normal Inspection, Normal Range of Motion, Non Tender, No Calf Tenderness, No Pedal Edema Neurologic/Psychiatric: Alert, Oriented x3, No Motor/Sensory Deficits, Normal Mood/Affect Skin: Normal Color, Warm/Dry Lymphatic: No Adenopathy Results Results/Procedures Labs Laboratory Tests 02/12/18 15:55 02/13/18 04:11 Patient resulted labs reviewed. Short Stay Diagnosis Discharge Diagnosis-Short Stay Admission Diagnosis Assessment: Near syncope due to dehydration Acute hyponatremia Acute renal failure Diabetic nephropathy with proteinuria Hypertension chronic benign type Severe noncompliance with medical treatment and follow-up Hyperlipidemia Final Discharge Diagnosis Assessment: Near syncope due to dehydration Acute hyponatremia Acute renal failure Diabetic nephropathy with proteinuria Hypertension chronic benign type Severe noncompliance with medical treatment and follow-up Hyperlipidemia Conclusion Plan Plan: Insulin administration education Diabetic education Close follow-up with me on Friday Stop lisinopril and hydrochlorothiazide Start Norvasc renal neutral blood pressure management Needs nephrology referral Clinical Quality Measures DVT/VTE Risk/Contraindication: Risk Factor Score Per Nursin RFS Level Per Nursing on Admit: 2=Moderate ROSEY ALBA DO February 13, 2018 10:31
[2018-02-13] MEDS ORDERED: HYDROcodone/APAP 5 MG/325 MG (LORTAB) TAB PO PRN (10:45)
--- NOTE | 2018-02-13 10:59 | Cardiology Progress Note ---
Cardiology SOAP Progress Note Subjective: No cardiac complaints Objective: I&O/Vital Signs 02/13/18 02/13/18 02/13/18 02/13/18 00:00 01:00 01:42 04:00 Temp 97.7 Pulse 67 70 Resp 16 B/P (MAP) 123/68 (86) Pulse Ox 98 98 98 O2 Delivery Room Air Room Air Room Air 02/13/18 02/13/18 02/13/18 02/13/18 04:22 08:00 08:30 08:30 Temp 97.6 96.9 Pulse 68 66 Resp 18 14 B/P (MAP) 123/72 (89) 123/72 (89) Pulse Ox 99 98 O2 Delivery Room Air Room Air Room Air Room Air 02/13/18 00:00 Intake Total 200 ml Output Total 0 ml Balance 200 ml Weight (Pounds): 183 Weight (Ounces): 2.0 Weight (Calculated Kilograms): 83.797730 Constitutional: appears stated age; No apparent distress; well-developed, well- nourished Respiratory: No accessory muscle use, No respiratory distress, No chest tender , No chest expansion is symmetric; chest is bilaterally symmetric; No lungs clear to percussion; lungs clear to auscultation; No crackles, No rhonchi, No rales, No stridor, No wheezing, No pleural rub, No other Cardiovascular: regular rate-rhythm; No irregularly irregular, No extra beats, No parasternal heave is noted, No JVD, No edema, No bradycardia, No tachycardia , No point of maximal impulse, No cardiac thrills are palpable; S1 and S2; No gallop/S3, No gallop/S4, No diastolic murmur, No systolic murmur, No friction rub, No click, No other Gastrointestional: No tender, No soft, No round, No distended, No pulsatile mass, No organomegaly, No guarding, No rebound, No tenderness, No hernia, No mass, No audible bowel sounds, No abnormal bowel sounds, No abdominal bruits, No spleenomegaly, No other Extremities: No normal range of motion, No non-tender, No normal inspection, No pedal edema, No calf tenderness, No normal capillary refill, No pelvis stable , No calf tenderness, No inflammation, No pedal edema, No slow capillary refill , No swelling, No other, No abrasion, No clubbing, No cyanosis, No ecchymosis, No laceration, No no lower extremity edema bilateral, No significant edema, No tenderness, No wound Neurologic/Psychiatric: no motor/sensory deficits, alert, normal mood/affect, oriented x 3, power is 5/5 both on sides Skin: No rash, No ulcerations Results/Procedures: Labs Laboratory Tests 02/12/18 15:55: White Blood Count 13.0H, Red Blood Count 4.26L, Hemoglobin 14.0, Hematocrit 38L , Mean Corpuscular Volume 90, Mean Corpuscular Hemoglobin 33, Mean Corpuscular Hemoglobin Concent 37H, Red Cell Distribution Width 12.1, Platelet Count 201, Mean Platelet Volume 11.0H, Neutrophils (%) (Auto) 80H, Lymphocytes (%) (Auto) 10L, Monocytes (%) (Auto) 9, Eosinophils (%) (Auto) 1, Basophils (%) (Auto) 0, Neutrophils # (Auto) 10.4H, Lymphocytes # (Auto) 1.3, Monocytes # (Auto) 1.2H, Eosinophils # (Auto) 0.1, Basophils # (Auto) 0.0, Prothrombin Time 12.5, INR Comment 0.9, Activated Partial Thromboplast Time 27, Sodium Level 131L, Potassium Level 4.4, Chloride Level 95L, Carbon Dioxide Level 24, Anion Gap 12, Blood Urea Nitrogen 57H, Creatinine 2.12H, Estimat Glomerular Filtration Rate 32 , BUN/Creatinine Ratio 27, Glucose Level 279H, Mean Blood Glucose 338H, Hemoglobin A1c 13.4H, Calcium Level 10.2H, Magnesium Level 2.3, Iron Level 20L, Ferritin 877.0H, Total Bilirubin 0.6, Aspartate Amino Transf (AST/SGOT) 10, Alanine Aminotransferase (ALT/SGPT) 10, Alkaline Phosphatase 56, Myoglobin 61.7 , Troponin I < 0.30, B-Type Natriuretic Peptide < 10.0, Total Protein 8.0, Albumin 4.2 02/12/18 21:17: Glucometer 322H 02/13/18 04:11: White Blood Count 8.6, Red Blood Count 3.46L, Hemoglobin 11.3L, Hematocrit 31L, Mean Corpuscular Volume 90, Mean Corpuscular Hemoglobin 33, Mean Corpuscular Hemoglobin Concent 37H, Red Cell Distribution Width 12.1, Platelet Count 193, Mean Platelet Volume 10.4, Neutrophils (%) (Auto) 73, Lymphocytes (%) (Auto) 13 , Monocytes (%) (Auto) 11, Eosinophils (%) (Auto) 3, Basophils (%) (Auto) 0, Neutrophils # (Auto) 6.3, Lymphocytes # (Auto) 1.2, Monocytes # (Auto) 1.0, Eosinophils # (Auto) 0.2, Basophils # (Auto) 0.0, Sodium Level 135, Potassium Level 3.6, Chloride Level 103, Carbon Dioxide Level 21, Anion Gap 11, Blood Urea Nitrogen 66H, Creatinine 1.92H, Estimat Glomerular Filtration Rate 35, BUN/ Creatinine Ratio 34, Glucose Level 151H, Calcium Level 9.5, Total Bilirubin 0.5 , Aspartate Amino Transf (AST/SGOT) 8, Alanine Aminotransferase (ALT/SGPT) 8, Alkaline Phosphatase 50, Total Protein 6.1L, Albumin 3.5, Triglycerides Level 132, Cholesterol Level 219H, LDL Cholesterol Direct 128, VLDL Cholesterol 26, HDL Cholesterol 53 02/13/18 04:25: Urine Color YELLOW, Urine Clarity CLEAR, Urine pH 5, Urine Specific [place] 1.025H, Urine Protein 1+H, Urine Glucose (UA) 2+H, Urine Ketones 1+H, Urine Nitrite NEGATIVE, Urine Bilirubin 1+H, Urine Urobilinogen 1, Urine Leukocyte Esterase 1+H, Urine RBC (Auto) NEGATIVE, Urine RBC NONE, Urine WBC RARE, Urine Squamous Epithelial Cells 2-5, Urine Crystals NONE, Urine Bacteria TRACE, Urine Casts PRESENT, Urine Hyaline Casts 10-25H, Urine Mucus NEGATIVE, Urine Culture Indicated NO A/P: Assessment/Dx: Fatigue, hypertension, diabetes, chronic kidney disease, hyperlipidemia Plan: Patient denies any cardiac symptoms. Serial troponin negative. Echocardiogram showed normal LV function with no wall motion abnormalities. Since the patient is asymptomatic nuclear stress test is not indicated. Hypertension: Blood pressure is borderline low. Will not recommend antihypertensive therapy at this point in time. Diabetes: Start metformin. Chronic kidney disease: He is to follow with nephrology as an outpatient. Hyperlipidemia: Start statin therapy considering that the patient has high risk features for CAD including diabetes and chronic kidney disease. I'll be happy to see the patient as an outpatient. Thank you for your consultation. Please call me if you have any questions. Praneeth Garces MD, FACP, FACC, FSCAI, FHRS, CCDS Interventional Cardiology Cardiac Electrophysiology Vascular Medicine and Endovascular Interventions Mallory GARCES MD February 13, 2018 10:59
[2018-02-13] MEDS ORDERED: ATOR40TA PO (11:00)
[2018-02-13 12:00] VITALS: BP 126/84
[2018-02-13] MEDS ORDERED: AUGMENTIN 875 MG TAB (AMOXICILLIN/CLAVULANATE) PO SCH (17:00)
[2018-02-13] MEDS ORDERED: NON-FORMULARY MEDICATION 1 EA EA (Amoxicillin/Potassium Clav (Amox Tr-K Clv 875-125 mg Tab PO SCH (21:00)
== END 2018-02-13 10:26 | disposition home or self-care (01) ==
LOC: ICU 14:20 → UNDOADMOB 14:21 → ICU 14:21 → UNDODISOB 02-13 13:10
PROVIDERS: ADMIT Internal Medicine; ATTEND Internal Medicine
DX: E86.0 Dehydration (principal); R55 Syncope and collapse; E11.21 Type 2 diabetes mellitus with diabetic nephropathy; I10 Essential (primary) hypertension; E78.5 Hyperlipidemia, unspecified; Z91.19 Patient's noncompliance with other medical treatment and regimen; E87.1 Hypo-osmolality and hyponatremia; N17.9 Acute kidney failure, unspecified
CPT/HCPCS: 36415; 71045; 80053; 80061; 81000; 82728; 82962; 83036; 83540; 83735; 83874; 83880; 84484; 85025; 85610; 85730; 93005; 93306; 99211

== ENCOUNTER → 2019-09-16 | Outpatient (CLI) | payer MEDICARE ==
[~2019-09-16] MED LIST: AMLO5TAB4 PO; AMOX1TAB12 PO; ATOR40TA PO; GLIP10TA24 PO; HYDR-3812 PO; INSU100I14 SQ; INSU100I29 SQ; LISI1TAB10 PO; METF500T8 PO; NEED-116 MC
--- NOTE | 2019-09-16 10:30 | Diagnostic Imaging Report ---
PROCEDURE: CT abdomen and pelvis without contrast. TECHNIQUE: Multiple contiguous axial images were obtained through the abdomen and pelvis without the use of intravenous contrast. Auto Exposure Controls were utilized during the CT exam to meet ALARA standards for radiation dose reduction. INDICATION: Prostate carcinoma. COMPARISON: No prior studies are available for comparison. FINDINGS: The lung bases are clear. The liver demonstrates generalized low density consistent with hepatic steatosis. No discrete liver mass is identified. The gallbladder is unremarkable. No biliary ductal dilatation is seen. Pancreas and spleen are unremarkable. No adrenal mass is detected. Kidneys are unremarkable. No calculi are seen. There is no hydronephrosis. Aorta and iliac vessels are calcified but nonaneurysmal. No central retroperitoneal or mesenteric lymphadenopathy is seen. Small and large bowel loops are normal caliber. There are diverticuli within the sigmoid colon but no evidence of acute diverticulitis. There is no free fluid or fluid collection identified. The bladder is unremarkable. Prostate is mildly enlarged. No definite inguinal or iliac lymphadenopathy is seen. No osteosclerotic lesions are seen. IMPRESSION: 1. Hepatic steatosis. 2. No evidence of abdominal or pelvic lymphadenopathy or metastatic disease. 3. Uncomplicated diverticulosis. Dictated by: Dictated on workstation # [id number]
--- NOTE | 2019-09-16 13:02 | Diagnostic Imaging Report ---
INDICATION: Prostate carcinoma. TECHNIQUE: Patient was administered 27.3 mCi technetium 99m MDP intravenously and whole body imaging was performed after three-hour delay. COMPARISON: No prior bone scans are available for comparison. FINDINGS: There is normal uptake of activity by the axial and appendicular skeleton. There is uptake by the kidneys with excretion into the urinary bladder. Mild uptake in bilateral hips is seen which is likely degenerative. No abnormal foci are identified to suggest osseous metastatic disease. IMPRESSION: No scintigraphic evidence of osseous metastatic disease. Dictated by: Dictated on workstation # [id number]
== END ==
LOC: CARD 09:11
PROVIDERS: ATTEND Urology
DX: C61 Malignant neoplasm of prostate (principal); K76.0 Fatty (change of) liver, not elsewhere classified; K57.30 Diverticulosis of large intestine without perforation or abscess without bleeding
CPT/HCPCS: 74176; 78306

== ENCOUNTER → 2019-10-15 | Outpatient (CLI) | payer MEDICARE ==
[2019-10-15 11:29] LABS: ALANINE AMINOTRANSFERASE 80 U/L (0-55); ALBUMIN 4.6 GM/DL (3.2-4.5); ALKALINE PHOSPHATASE 62 U/L (40-136); BILIRUBIN,TOTAL 0.6 MG/DL (0.1-1.0); BUN/CREATININE RATIO 17; CALCIUM 9.8 MG/DL (8.5-10.1); CARBON DIOXIDE 24 MMOL/L (21-32); CHLORIDE 97 MMOL/L (98-107); CREATININE SERUM 1.81 MG/DL (0.60-1.30); GFR ESTIMATED 38; GLUCOSE 263 MG/DL (70-105); POTASSIUM 4.7 MMOL/L (3.6-5.0); SODIUM 136 MMOL/L (135-145); TOTAL PROTEIN 7.7 GM/DL (6.4-8.2)
[2019-10-15 16:15] LABS: TRIGLYCERIDES 148 MG/DL (<150)
== END ==
LOC: LAB FS 10:28
PROVIDERS: ATTEND Internal Medicine
DX: Z00.00 Encounter for general adult medical examination without abnormal findings (principal); E78.00 Pure hypercholesterolemia, unspecified; E78.1 Pure hyperglyceridemia; E11.9 Type 2 diabetes mellitus without complications
CPT/HCPCS: 36415; 80053; 82465; 83036; 84478

== ENCOUNTER 2019-10-20 14:32 | Outpatient (RCR) | payer MEDICARE | END 2019-10-21 14:56 | disposition home or self-care (01) | LOC: ONC 14:32 | PROVIDERS: ATTEND Radiology Radiation Oncology | DX: C61 Malignant neoplasm of prostate (principal) | CPT/HCPCS: 99204 ==

== ENCOUNTER → 2019-11-09 | Outpatient (CLI) | payer MEDICARE ==
[~2019-11-09] MED LIST changes: -LISI1TAB10 PO; +LISI1TAB26 PO; +METF500T19 PO; -METF500T8 PO
[2019-11-09 09:17] LABS: BUN/CREATININE RATIO 14; CARBON DIOXIDE 24 MMOL/L (21-32); CHLORIDE 104 MMOL/L (98-107); CREATININE SERUM 1.11 MG/DL (0.60-1.30); GFR ESTIMATED > 60; GLUCOSE 159 MG/DL (70-105); POTASSIUM 4.2 MMOL/L (3.6-5.0); SODIUM 142 MMOL/L (135-145)
[2019-11-09 09:18] LABS: ALANINE AMINOTRANSFERASE 75 U/L (0-55); ALBUMIN 4.6 GM/DL (3.2-4.5); ALKALINE PHOSPHATASE 79 U/L (40-136); BILIRUBIN,TOTAL 0.5 MG/DL (0.1-1.0); CALCIUM 9.7 MG/DL (8.5-10.1); TOTAL PROTEIN 7.7 GM/DL (6.4-8.2)
== END ==
LOC: LAB FS 08:44
PROVIDERS: ATTEND Internal Medicine
DX: K75.81 Nonalcoholic steatohepatitis (NASH) (principal); N17.9 Acute kidney failure, unspecified
CPT/HCPCS: 36415; 80053

== ENCOUNTER → 2020-03-02 | Outpatient (CLI) | payer MEDICARE ==
[~2020-03-02] VITALS: Ht 182 cm; Wt 86.0 kg
[~2020-03-02] MED LIST changes: +ACHD5005 PO; +CATHETER FLUSH 10 ML SYR IV PRN; -HYDR-3812 PO; +METF-865 PO; -METF500T19 PO; +REGADENOSON 0.4 MG/5 ML SYR (LEXISCAN) IV ONE
[2020-03-02 09:11] VITALS: BP 181/99
[2020-03-02 09:15] VITALS: BP 173/91
--- NOTE | 2020-03-04 14:19 | Cardiology Stress Test Report ---
Stress Test Report Type of NM Stress Test: Test Type: LEXISCAN 0.4MG/5ML Date of Procedure/Referring: Date of Procedure: March 02, 2020 PCP Mallory Garces MD Admitting Physician Rosey Alba DO Indications: Shortness of breath. Baseline Heart Rate: 80 Baseline Blood Pressure: Blood Pressure Systolic: 173 Blood Pressure Diastolic: 91 Baseline EKG: Baseline EKG: Sinus rhythm Summary & Conclusion: Summary: The patient was brought to the stress lab after informed consent was taken. Stress test was performed according to the Lexiscan protocol. 0.4 mg of IV Lexiscan was given. Low-grade exercise was performed. Baseline EKG showed sinus rhythm at 80 BPM, blood pressure 181/96 mmHg. Maximum heart rate of 92 bpm and blood pressure 175/82 mmHg. Patient did not have any chest pain, arrhythmias or significant ST segment changes during the stress test. 10.64 mCi of Myoview were given for rest imaging and 31.2 mCi of Myoview given for stress imaging. Transient ischemic dilatation score , EF percent. Normal wall motion. Normal myocardial perfusion imaging during rest and stress. Conclusion: Pharmacological stress test was negative for ischemia. Normal LV function with no wall motion abnormalities. Normal myocardial perfusion imaging during rest and stress. Mallory GARCES MD March 04, 2020 14:19
== END ==
LOC: CARD 07:56
PROVIDERS: ATTEND Internal Medicine Interventional Cardiology
DX: I11.9 Hypertensive heart disease without heart failure (principal); E78.01 Familial hypercholesterolemia; N52.9 Male erectile dysfunction, unspecified; E11.9 Type 2 diabetes mellitus without complications; C61 Malignant neoplasm of prostate
CPT/HCPCS: 78452; 93017; 93306